=== PATIENT | female | born 1995 | race Caucasian/White ===

== ENCOUNTER 2025-04-01 20:20 | Emergency (ER) | payer OTHER, SELFPAY ==
[2025-04-01 20:23] VITALS: BP 149/106
[2025-04-01] MEDS: TYLENOL 650 MG PO (22:57)
[2025-04-01 23:00] VITALS: BP 108/70
--- NOTE | 2025-04-01 23:03 | ED.GENMED ---
History of Present Illness
General
Chief Complaint: Crisis Evaluation
Source: patient
Exam Limitations: none
Time Seen by Provider: 04/01/25 21:06
Nursing documentation reviewed up to this point in time: agreed with
History of Present Illness
History of Present Illness:
Patient with history of bipolar disorder, presents ED for evaluation secondary to suicidal ideation. Patient states that she recently started drinking alcohol again, which may be contributing to her presentation. She was at work this afternoon and
when she saw the cord, she had thoughts of wanting to wrap a cord around her neck. Patient has had previous suicidal attempt. Denies recent illness. Denies recent change in medications or diet. Patient is complaining of chronic headache.
Past History
Past History
ED Past Medical History: Other (Ovarian cysts)
ED Past Surgical History: Other (Rhinoplasty)
Social History
Tobacco: Former smoker
Alcohol: Occasional
Drug: None
Personal: Single
Living: with family
Review of Systems
Review of Systems
Allergies reviewed?: Yes
All Other Systems: ROS reviewed and negative except as documented in HPI and ROS
Constitutional: Reports no symptoms
Respiratory: Reports no symptoms
Cardiac: Reports no symptoms
ABD/GI: Reports no symptoms
Musculoskeletal: Reports no symptoms
Skin: Reports no symptoms
Neurological: Reports headache
Psychiatric: Reports suicidal
Phy Exam
Physical Exam
Physical Exam:
Physical Exam
General: no apparent distress, not acutely ill. afebrile
Head: nc/at. eomi
Neck: supple. normal range of motion.
Heart: s1/s2 regular rate and rhythm
Lungs: no acute respiratory distress. clear bilaterally
Abdomen: normal bowel sounds. not tender.
Neuro: alert and oriented x 3. no focal neurological deficits
Skin: no rash
Psychiatric: well kept. interactive and cooperative
Extremities: no edema. no calf tenderness.
Course
Orders/Labs/Results
Orders:
Orders
04/01/25 20:28
1:1 Observation - Suicide/ Violent Behavior As Directed
04/01/25 22:26
Crisis Consult Urgent
Reason for Consult: suicidal ideation
04/01/25 22:35
Acetaminophen [Tylenol] 650 mg PO NOW STA
04/01/25 22:58
Urine Drug Abuse Screen Urgent
Date Specimen was Collected: 04/01/25
Time Specimen was Collected: 22:58
Test Result ONCE
04/01/25 23:06
Lorazepam [Ativan] 1 mg PO NOW STA
04/01/25 23:07
Alcohol Urgent
HCG, Serum Qualitative Screen Urgent
Comment: Notify provider if positive test present
Vital Signs
Initial and Last Documented VS:
Initial Vital Signs
Temp Pulse Resp BP Pulse Ox
98.1 F 103 18 149/106 100
04/01/25 20:23 04/01/25 20:23 04/01/25 20:23 04/01/25 20:23 04/01/25 20:23
Last Documented Vital Signs
Temp Pulse Resp BP Pulse Ox
98.1 F 92 14 108/70 100
04/01/25 20:23 04/01/25 23:00 04/01/25 23:00 04/01/25 23:00 04/01/25 23:06
MDM/Problems Addressed
MDM/Problems Addressed:
Patient was evaluated by [facility] compensator worker. Decision made to transition patient to inpatient psychiatric facility for further evaluation treatment, on voluntary basis.
*Pulse Oximetry
SaO2: 100
Oxygen Mode of Delivery: Room air
Patient hypoxic: no
*Critical Care Note
Total Time (30-74mins, 75-104mins- exclusive of procedures): Not Applicable
ED Attending Note
-
Portions of this chart may have been created with voice recognition software.� Occasional wrong word or��sound alike� substitutions may have occurred due to the inherent limitations of voice recognition software.
Discharge Plan
Departure
Patient Disposition: Psych Facility
Date of Disposition: 04/01/25
Time of Disposition: 23:07
Patient Status:: 201
Discharge Problem:
Suicidal ideation
Prescriptions:
No Action
levothyroxine 25 mcg Tablet
25 mcg PO DAILY
Referrals:
Xavier Canada MD [Family Provider, Internal Medicine]
Interventions
Interventions:
*Risk Screen - Suicide Last Done: 04/01/25 20:23
*General Assessment Last Done: 04/01/25 20:23
*Neglect/Abuse Screening Last Done: 04/01/25 23:11
*ED- Fall Risk Assessment Last Done: 04/01/25 23:11
*ED COVID-19 Vaccine History Last Done: 04/01/25 23:11
*ED Influenza Vaccine History Last Done: 04/01/25 23:11
*Nursing Disposition Last Done: 04/02/25 03:10
ED-Psychological Assessment Last Done: 04/01/25 23:11
Discharge Date and Time
Discharge Date/Time: 04/02/25 03:20
Print Language: HUNGARIAN
[2025-04-01] MEDS: ATIVAN 1 MG PO (23:09)
[2025-04-01 23:11] VITALS: BMI 19.6
[2025-04-01 23:55] LABS: HCG, Serum Qualitative Screen Negative
== END 2025-04-02 03:20 ==
LOC: EMR 20:20
PROVIDERS: EMERGENCY PHYSICIAN Emergency Medicine; FAMILY PHYSICIAN Internal Medicine
DX: R45.851 Suicidal ideations (principal); F31.9 Bipolar disorder, unspecified; Z91.51 Personal history of suicidal behavior; Z87.891 Personal history of nicotine dependence
CPT/HCPCS: 99285; 80306; 82077; 84703

== ENCOUNTER 2025-05-15 15:28 | Emergency (ER) | payer OTHER, SELFPAY ==
[2025-05-15 15:30] VITALS: BP 167/96
--- NOTE | 2025-05-15 16:34 | ED.GENMED ---
History of Present Illness
General
Chief Complaint: Urinary Symptoms
Time Seen by Provider: 05/15/25 16:18
History of Present Illness
History of Present Illness:
Samantha is a 29F with PMH of [place] who presents complaining of dysuria and hematuria that began today. She was recently treated with a 5 day course of antibiotics by PCP after home urine dip was positive for UTI. Symptoms intially resolved but
then she began to develop dysuria several days ago and today had blood tinged urine. Last menstural cycle ended 1 week ago.
Past History
Past History
ED Past Medical History: Other (Ovarian cysts)
ED Past Surgical History: Other (Rhinoplasty)
Social History
Tobacco: Former smoker
Alcohol: Occasional
Drug: None
Personal: Single
Living: with family
Phy Exam
General Physical Exam
General Presentation: well appearing and no apparent distress
General Skin: warm and dry
General Habitus: normal
General Mental: alert
General Hydration: appears well hydrated
ENT Exam
ENT Exam: EOMI, pharynx normal, neck supple and normocephalic
Eye Exam
Eye Exam: PERRL, cornea clear and conjunctiva normal
Cardiovascular Exam
Cardiovascular Exam: regular rate/rhythm, no edema, no murmur and normal peripheral pulses
Pulmonary Exam
Pulmonary Exam: lungs clear, no respiratory distress, no rales, no crackles, no rhonchi, no stridor, no wheezing and no cough
Gastrointestinal Exam
Gastrointestinal Exam: normal bowel sounds, non tender, soft, no organomegaly, no pulsatile mass and non distended
Neurological Exam
Neurological Exam: alert, oriented x3, no motor deficits and speech normal
Musculoskeletal Exam
Musculoskeletal Exam: full ROM, no edema and other (Right sided mid back pain, no CVA tenderness)
Skin Exam
Skin Exam: normal color, warm/dry, no rash and no petechia
Psychiatric Exam
Psychiatric Exam: normal mood/affect
Course
Orders/Labs/Results
Orders:
Orders
05/15/25 15:50
Test Result ONCE
05/15/25 16:48
Basic Metabolic Panel Urgent
Complete Blood Count/With Diff Urgent
, Urine Qualitative Screen [HCG, Urine Qualitative Screen] Urgent
Date Specimen was Collected: 05/15/25
Time Specimen was Collected: 16:14
Urinalysis Reflex To Culture Urgent
Date Specimen was Collected: 05/15/25
Time Specimen was Collected: 16:14
Chlamydia/GC by PCR Urgent
RHONDA Source: U
Specimen Description:
Source:: URINE
Date Specimen was Collected: 05/15/25
Time Specimen was Collected: 16:14
Comment: Add on per Kady Kendall PA-C
05/15/25 16:56
Acetaminophen [Tylenol] 1,000 mg PO NOW STA
05/15/25 18:23
Abdomen/Pelvis wo Contrast CT [CT Abd/pelvis Wo Iv Cont] Urgent
Comment:
Reason For Exam: right flank pain
05/15/25 19:05
Add On - Microbiology Urgent
Tests Added?: GC/Chlymydia urine
Abnormal Lab Results
05/15/25
16:48
RBC 4.13 L 10^6/uL
(4.20-5.40)
Hgb 11.6 L g/dL
(12.0-16.0)
Hct 36.5 L %
(37.0-47.0)
MCHC 31.8 L g/dL
(33.0-37.0)
RDW 17.8 H %
(11.5-14.5)
Plt Count 459 H 10^3/uL
(130-400)
Chloride 109 H mmol/L
(98-107)
Glucose 116 H mg/dl
(70-99)
05/15/25 16:48
05/15/25 16:48
Vital Signs
Initial and Last Documented VS:
Initial Vital Signs
Temp Pulse Resp BP Pulse Ox
36.9 C 112 18 167/96 99
05/15/25 15:30 05/15/25 15:30 05/15/25 15:30 05/15/25 15:30 05/15/25 15:30
Last Documented Vital Signs
Temp Pulse Resp BP Pulse Ox
36.9 C 100 16 132/90 95
05/15/25 15:30 05/15/25 19:40 05/15/25 19:40 05/15/25 19:40 05/15/25 19:40
MDM/Problems Addressed
Differential Diagnosis Includes:
UA obtained and is negative for any urinary tract infection. CBC and BMP reviewed with no abnormalities noted. Given this CT scan was added to rule out nephrolithiasis as patient is describing cramping mid back pain. CT abdomen pelvis without
contrast is negative for any kidney stones however shows possible ruptured ovarian cyst. Reevaluation this was discussed with patient who reports that she has a history of ruptured ovarian cyst and the pain is similar in nature to prior episodes.
Pain is improved after Tylenol. Patient requests that chlamydia and gonorrhea screening be completed and this was added onto her urine. She feels well and would like to be discharged home. Return precautions discussed and patient will follow-up
with her as an outpatient.
*Pulse Oximetry
SaO2: 99
Oxygen Mode of Delivery: Room air
Patient hypoxic: no
*Critical Care Note
Total Time (30-74mins, 75-104mins- exclusive of procedures): Not Applicable
ED Attending Note
-
Portions of this chart may have been created with voice recognition software.� Occasional wrong word or��sound alike� substitutions may have occurred due to the inherent limitations of voice recognition software.
Discharge Plan
Departure
Patient Disposition: Home (Routine Discharge)
Date of Disposition: 05/15/25
Time of Disposition: 19:05
Patient with high blood pressure during this ER visit?: Yes
Discharge Problem:
Ovarian cyst
Instructions: Ovarian cyst - ED (DC)
Prescriptions:
No Action
levothyroxine 25 mcg Tablet
25 mcg PO DAILY
Referrals:
Xavier Canada MD [Family Provider, Internal Medicine]
Activity Restrictions/Additional Instructions:
Follow-up with your building service worker regarding recurrent ovarian cysts. You may take Tylenol and ibuprofen for any pain. Return to the ER for fevers over 100.4 that do not respond to Tylenol or ibuprofen for worsening of her abdominal pain. STD panel
has been added to your urine and if results are positive you will be called
Interventions
Interventions:
*Risk Screen - Suicide Last Done: 05/15/25 15:30
*General Assessment Last Done: 05/15/25 15:30
*Neglect/Abuse Screening Last Done: 05/15/25 15:30
*ED COVID-19 Vaccine History Last Done: 05/15/25 20:00
*ED Influenza Vaccine History Last Done: 05/15/25 20:00
[facility] Fall Risk Assessment Tool Last Done: 05/15/25 20:00
*Nursing Disposition Last Done: 05/15/25 20:00
ED-Female Genitourinary Assessment Last Done: 05/15/25 17:04
Discharge Date and Time
Discharge Date/Time: 05/15/25 20:02
Print Language: BENGALI
[2025-05-15 17:06] LABS: Hematocrit 36.5 % (37.0-47.0); Hemoglobin 11.6 g/dL (12.0-16.0); Mean Corp Hgb Conc. 31.8 g/dL (33.0-37.0); Mean Corpuscular Volume 88.4 fL (81.0-99.0); Nucleated Red Blood Cells % 0 %; Platelet Count 459 10^3/uL (130-400); Red Cell Dist. Width 17.8 % (11.5-14.5)
[2025-05-15] MEDS: TYLENOL 1000 MG PO (17:12)
[2025-05-15 17:17] LABS: Blood Urea Nitrogen 13 mg/dl (7-17); Calcium 9.5 mg/dl (8.4-10.2); Carbon Dioxide 23 mmol/L (22-30); Chloride 109 mmol/L (98-107); Glucose 116 mg/dl (70-99); Potassium 4.0 mmol/L (3.5-5.1); Sodium 135 mmol/L (135-145); eGFR > 60.00
[2025-05-15 18:16] LABS: Urine Character Clear (Clear)
[2025-05-15 18:18] LABS: HCG, Urine Qualitative Screen Negative
[2025-05-15 19:40] VITALS: BP 132/90
== END 2025-05-15 20:02 | disposition home or self-care (01) ==
LOC: EMR 15:28
PROVIDERS: Emergency Medicine; Surgery Trauma Surgery; EMERGENCY PHYSICIAN Emergency Medicine; FAMILY PHYSICIAN Internal Medicine
DX: N83.209 Unspecified ovarian cyst, unspecified side (principal); R31.0 Gross hematuria; E06.3 Autoimmune thyroiditis; Z87.891 Personal history of nicotine dependence; Z87.440 Personal history of urinary (tract) infections
CPT/HCPCS: 99284; 74176; 80048; 81003; 81025; 85025; 87491; 87591

== ENCOUNTER 2025-05-16 20:54 | Emergency (ER) | payer OTHER, SELFPAY ==
[2025-05-16 21:04] VITALS: BP 164/119
--- NOTE | 2025-05-16 21:42 | ED.GENMED ---
History of Present Illness
General
Chief Complaint: Overdose Intentional
Source: patient
Exam Limitations: none
Time Seen by Provider: 05/16/25 21:30
Nursing documentation reviewed up to this point in time: agreed with
History of Present Illness
History of Present Illness:
The patient is a 29-year-old female with a past medical history of bipolar disorder, anxiety, depression and multiple overdoses, who reports that around 5:30 PM this evening she took 25 tablets of an [id number] cold and cough medication. Each
tablet contained 4 mg of Chlorphenirmine maleate and 30 mg of dextromethorphan. Patient reports she took it not to kill herself or hurt herself, but to ' disassociate' and get high. Patient reports that she just started a new job and has been
slightly stressed. She feels safe at home and lives with roommates. Patient denies homicidal and suicidal thoughts. Patient feels palpitations. She denies nausea and vomiting. Patient reports she feels drowsy
Past History
Past History
ED Past Medical History: Psychiatric (Bipolar disorder) and Other (Ovarian cysts)
ED Past Surgical History: Other (Rhinoplasty)
Social History
Tobacco: Former smoker
Alcohol: Former
Drug: None
Personal: Single
Living: with roommate
Employment: Employed
Family History
Family History: Other
Review of Systems
Review of Systems
Allergies reviewed?: Yes
All Other Systems: ROS reviewed and negative except as documented in HPI and ROS
Constitutional: Reports fatigue
EENT: Reports no symptoms
Respiratory: Reports no symptoms
Cardiac: Reports palpitations
ABD/GI: Reports no symptoms
: Reports no symptoms
Musculoskeletal: Reports no symptoms
Skin: Reports no symptoms
Neurological: Reports dizzy
Endocrine: Reports no symptoms
Hematologic/Lymphatic: Reports no symptoms
Psychiatric: Reports anxiety; Denies suicidal
Phy Exam
Physical Exam
Physical Exam:
Physical Exam
General: Patient appears anxious
Neck: supple. no meningeal signs
Heart: Tachycardic
Lungs: no acute respiratory distress. clear bilaterally
Abdomen: normal bowel sounds. not tender. no CVAT
Neuro: alert and oriented. no focal neurological deficits
Skin: no rash
Psychiatric: well kept. interactive and cooperative
Extremities: no edema. no calf tenderness. negative homans. good distal pulses
Course
Orders/Labs/Results
Orders:
Orders
05/16/25 21:37
Test Result ONCE
05/16/25 21:38
Electrocardiogram (*1) Urgent
Reason for Study: Palpitations
EKG- Treatment ONCE
0.9% Sodium Chloride 1000 ml [Nss] 1,000 ml IV BOLUS
05/16/25 21:39
Crisis Consult Urgent
Reason for Consult: overdose
05/16/25 22:19
Alcohol Urgent
Complete Blood Count/With Diff Urgent
Comprehensive Metabolic Panel Urgent
HCG, Serum Qualitative Screen Urgent
Salicylate Urgent
Tylenol [Acetaminophen] Urgent
05/17/25 01:34
Acetaminophen [Tylenol] 1,000 mg PO NOW STA
05/17/25 01:35
Consult Notification Routine
Specialty to Notify: Psychiatry
PSYCHIATRY CONSULT Urgent
Consulting Provider: Dania Mckeon
Was physician already notified: No
Reason for consult: intentional overdose
Abnormal Lab Results
05/16/25
22:19
RBC 3.94 L 10^6/uL
(4.20-5.40)
Hgb 11.0 L g/dL
(12.0-16.0)
Hct 34.7 L %
(37.0-47.0)
MCHC 31.7 L g/dL
(33.0-37.0)
RDW 17.2 H %
(11.5-14.5)
Plt Count 413 H 10^3/uL
(130-400)
Absolute Neuts (auto) 6.9 H 10^3/uL
(1.4-6.5)
Absolute Monos (auto) 0.8 H 10^3/uL
(0.1-0.6)
Acetaminophen < 10 L ug/ml
(10-30)
05/16/25 22:19
05/16/25 22:19
Vital Signs
Initial and Last Documented VS:
Initial Vital Signs
Temp Pulse Resp BP Pulse Ox
98.8 F 119 20 164/119 95
05/16/25 21:04 05/16/25 21:04 05/16/25 21:04 05/16/25 21:04 05/16/25 21:04
Last Documented Vital Signs
Temp Pulse Resp BP Pulse Ox
98.8 F 115 22 140/94 96
05/16/25 21:04 05/17/25 00:15 05/17/25 00:15 05/17/25 00:00 05/17/25 00:15
MDM/Problems Addressed
Differential Diagnosis Includes:
Intentional acute dextromethorphan overdose, suicidal attempt, acute anxiety
MDM/Problems Addressed:
Patient presents after acute overdose that was intentional
Chronic conditions affecting care: Psychiatric illness
Acute Exacerbation and/or Progression of Chronic Illness:
Patient likely has progression and acute exacerbation of anxiety and depression
*Pulse Oximetry
SaO2: 95
Oxygen Mode of Delivery: Room air
Patient hypoxic: no
*EKG
Interpreted by ED Provider?: Yes
Interpretation: abnormal
Comparison EKG: changes noted
Rate: tachycardiac
Rhythm: sinus
Sequim: normal axis
Interval: normal interval
QRS Pattern: normal QRS
Ischemia: no ischemia
*Technology Education Teacher Interpretation
Rate: tachycardiac
Interpretation: abnormal
Rhythm: sinus
*Critical Care Note
Total Time (30-74mins, 75-104mins- exclusive of procedures): Not Applicable
Data Reviewed
Review of Other/Old Records Reveals: Progress Notes (Crisis note reviewed from 04/03/2025 when patient arrived for suicidal thoughts and wanted inpatient psychiatric management)
Source: patient
Patient Management
Social determinants of health affecting care: Living situation and Strong social support
Discussion with other providers: Other ([facility], Dr. Tapia from [facility] who recommends observation until 2 AM)
Update Note
Update Note:
2:05 AM patient is medically cleared for psychiatric eval and dispo. Patient expresses that she really would like to go home. She states that she did not take the pills to kill herself, rather, to ' feel high'. Patient expresses remorse to me
about taking the pills. She reports she has training for a new job both today and tomorrow and is very concerned about missing it. Telepsych did evaluate the patient and is concerned about patient's safety given that she took 25 pills. I
explained to the patient that I am very concerned about her insight and judgment and still question her safety.
Patient is agreeable to staying in the ED to talk to psychiatry later this morning. I put in a psychiatric consult
ED Attending Note
-
Portions of this chart may have been created with voice recognition software.� Occasional wrong word or��sound alike� substitutions may have occurred due to the inherent limitations of voice recognition software.
Discharge Plan
Departure
Patient Disposition: Other
Date of Disposition: 05/17/25
Time of Disposition: 00:26
Patient Status:: 302
Patient with high blood pressure during this ER visit?: Yes
Condition: Fair
Covid-19: Not Applicable
Discharge Problem:
Intentional overdose
Prescriptions:
No Action
levothyroxine 25 mcg Tablet
25 mcg PO DAILY
lamotrigine [Lamictal] 25 mg Tablet
25 mg PO DAILY
buspirone [BuSpar] 10 mg Tablet
10 mg PO TID
Referrals:
Xavier Canada MD [Family Provider, Internal Medicine]
Interventions
Interventions:
*General Assessment Last Done: 05/16/25 21:04
*Neglect/Abuse Screening Last Done: 05/16/25 21:04
*ED COVID-19 Vaccine History Last Done: 05/16/25 21:04
*ED Influenza Vaccine History Last Done: 05/16/25 21:04
[facility] Fall Risk Assessment Tool Last Done: 05/16/25 21:53
ED- Cardiac Assessment Last Done: 05/16/25 21:50
ED- Neurological Assessment Last Done: 05/16/25 21:50
ED-Psychological Assessment Last Done: 05/16/25 21:50
ED- Pulmonary Assessment Last Done: 05/16/25 21:50
Discharge Date and Time
Print Language: HONG KONGER
[2025-05-16 21:49] VITALS: BMI 22.3
[2025-05-16 22:27] LABS: Hematocrit 34.7 % (37.0-47.0); Hemoglobin 11.0 g/dL (12.0-16.0); Mean Corp Hgb Conc. 31.7 g/dL (33.0-37.0); Mean Corpuscular Volume 88.1 fL (81.0-99.0); Nucleated Red Blood Cells % 0 %; Platelet Count 413 10^3/uL (130-400); Red Cell Dist. Width 17.2 % (11.5-14.5)
[2025-05-16] MEDS: NSS 1000 IV (22:32)
[2025-05-16 22:34] VITALS: BP 147/96
[2025-05-16 22:50] LABS: HCG, Serum Qualitative Screen Negative
[2025-05-16 22:51] LABS: ALT (SGPT) 17 U/L (0-35); AST (SGOT) 25 U/L (14-36); Acetaminophen < 10 ug/ml (10-30); Albumin 4.6 g/dl (3.5-5.0); Alkaline Phosphatase 48 U/L (38-126); Blood Urea Nitrogen 13 mg/dl (7-17); Calcium 9.7 mg/dl (8.4-10.2); Carbon Dioxide 30 mmol/L (22-30); Chloride 107 mmol/L (98-107); Estimated Creatinine Clearance 96 ml/min; Glucose 80 mg/dl (70-99); Potassium 4.4 mmol/L (3.5-5.1); Salicylate 3.7 mg/dl (2.0-20.0); Sodium 135 mmol/L (135-145); Total Protein 7.5 g/dl (6.3-8.2); eGFR > 60.00
[2025-05-17] VITALS: BP 140/94
--- NOTE | 2025-05-17 01:04 | EDRN ---
Pt outside room in clothing with belongings, self removed IV. pt asking to leave right now and is unwilling to speak to anybody. Crisis at bedside to explain possibility of 302 if she is unwilling to stay due to psych doctors request. Pt disagrees
with psych diagnosis 'I actually want to get a managing director involved'. Dr. Wu at bedside explaining need to stay. Security called to bedside.
[2025-05-17] MEDS: TYLENOL 1000 MG PO (01:42)
--- NOTE | 2025-05-17 02:00 | EDRN ---
Pt moved to C2 with security. Crisis to bedside to speak with patient again about staying. pt states she is willing to stay overnight voluntarily to [facility]. Pt changed into paper scrubs, provided warm blankets, water and Tylenol for
headache.
--- NOTE | 2025-05-17 04:20 | EDRN ---
Pt resting on bed, 1-1 observation continues. pt expresses no needs, offered warm blankets but states she is okay. Pt cooperative with staff at this time.
[2025-05-17 06:43] VITALS: BP 112/78
--- NOTE | 2025-05-17 11:19 | ED.GENMED ---
History of Present Illness
General
Chief Complaint: Overdose Intentional
Time Seen by Provider: 05/16/25 21:30
Past History
Past History
ED Past Medical History: Psychiatric (Bipolar disorder) and Other (Ovarian cysts)
ED Past Surgical History: Other (Rhinoplasty)
Social History
Tobacco: Former smoker
Alcohol: Former
Drug: None
Personal: Single
Living: with roommate
Employment: Employed
Family History
Family History: Other
Course
Orders/Labs/Results
Orders:
Orders
05/16/25 21:37
Test Result ONCE
05/16/25 21:38
Electrocardiogram (*1) Urgent
Reason for Study: Palpitations
EKG- Treatment ONCE
0.9% Sodium Chloride 1000 ml [Nss] 1,000 ml IV BOLUS
05/16/25 21:39
Crisis Consult Urgent
Reason for Consult: overdose
05/16/25 22:19
Alcohol Urgent
Complete Blood Count/With Diff Urgent
Comprehensive Metabolic Panel Urgent
HCG, Serum Qualitative Screen Urgent
Salicylate Urgent
Tylenol [Acetaminophen] Urgent
05/17/25 01:34
Acetaminophen [Tylenol] 1,000 mg PO NOW STA
05/17/25 01:35
Consult Notification Routine
Specialty to Notify: Psychiatry
PSYCHIATRY CONSULT Urgent
Consulting Provider: Dania Mckeon
Was physician already notified: No
Reason for consult: intentional overdose
Abnormal Lab Results
05/16/25
22:19
RBC 3.94 L 10^6/uL
(4.20-5.40)
Hgb 11.0 L g/dL
(12.0-16.0)
Hct 34.7 L %
(37.0-47.0)
MCHC 31.7 L g/dL
(33.0-37.0)
RDW 17.2 H %
(11.5-14.5)
Plt Count 413 H 10^3/uL
(130-400)
Absolute Neuts (auto) 6.9 H 10^3/uL
(1.4-6.5)
Absolute Monos (auto) 0.8 H 10^3/uL
(0.1-0.6)
Acetaminophen < 10 L ug/ml
(10-30)
05/16/25 22:19
05/16/25 22:19
Vital Signs
Initial and Last Documented VS:
Initial Vital Signs
Temp Pulse Resp BP Pulse Ox
98.8 F 119 20 164/119 95
05/16/25 21:04 05/16/25 21:04 05/16/25 21:04 05/16/25 21:04 05/16/25 21:04
Last Documented Vital Signs
Temp Pulse Resp BP Pulse Ox
98.1 F 98 14 112/78 99
05/17/25 06:43 05/17/25 06:43 05/17/25 06:43 05/17/25 06:43 05/17/25 06:43
*Pulse Oximetry
SaO2: 99
Oxygen Mode of Delivery: Room air
Update Note
Update Note:
Attending Sign Out (Hyun Arias DO)
11:15 -29-year-old female who presented to the emergency department after intentional overdose. Patient however denies suicidal ideation. Patient was placed under 302 given the overdose
ED Attending Note
-
Portions of this chart may have been created with voice recognition software.� Occasional wrong word or��sound alike� substitutions may have occurred due to the inherent limitations of voice recognition software.
Discharge Plan
Departure
Patient Disposition: Other
Date of Disposition: 05/17/25
Time of Disposition: 00:26
Patient Status:: 302
Patient with high blood pressure during this ER visit?: Yes
Condition: Fair
Covid-19: Not Applicable
Discharge Problem:
Intentional overdose
Prescriptions:
No Action
levothyroxine 25 mcg Tablet
25 mcg PO DAILY
lamotrigine [Lamictal] 25 mg Tablet
25 mg PO DAILY
buspirone [BuSpar] 10 mg Tablet
10 mg PO TID
Referrals:
Xavier Canada MD [Family Provider, Internal Medicine]
Interventions
Interventions:
*Risk Screen - Suicide Last Done: 05/16/25 22:45
*General Assessment Last Done: 05/16/25 21:04
*Neglect/Abuse Screening Last Done: 05/16/25 21:04
*ED COVID-19 Vaccine History Last Done: 05/16/25 21:04
*ED Influenza Vaccine History Last Done: 05/16/25 21:[address]
[facility] Fall Risk Assessment Tool Last Done: 05/16/25 21:53
ED- Cardiac Assessment Last Done: 05/16/25 21:50
ED- Neurological Assessment Last Done: 05/16/25 21:50
ED-Psychological Assessment Last Done: 05/16/25 21:50
ED- Pulmonary Assessment Last Done: 05/16/25 21:50
Discharge Date and Time
Print Language: BANGLADESHI
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
--- NOTE | 2025-05-17 11:20 | ED.CRISIS ---
ED Crisis Note
ED Crisis Note
Subjective:
29-year-old female presenting to the emergency department after intentional overdose
Objective:
Patient seen and evaluated by physician overnight after patient had intentionally taken approximately 25 tablets of [id number] cold and cough medication. Each tablet contained 4 mg of Chlorphenirmine maleate and 30 mg of dextromethorphan.
Patient medically cleared in the emergency department. Patient was placed under 302 given self-harm behavior, however adamantly denying suicidal ideation. Reports that she wanted to 'get high '. Pending psych assessment
Assessment/Plan:
Patient remains at hemodynamically stable. She was seen and evaluated by psychiatry. They do not presently feel like she is a risk to her self or threat to herself. Feel patient is stable for discharge with outpatient resources as this will
provide.
== END 2025-05-17 11:45 | disposition home or self-care (01) ==
LOC: EMR 20:54
PROVIDERS: CONSULT PHYSICIAN Psychiatry & Neurology Psychiatry; EMERGENCY PHYSICIAN Emergency Medicine; FAMILY PHYSICIAN Internal Medicine
DX: T50.902A Poisoning by unspecified drugs, medicaments and biological substances, intentional self-harm, initial encounter (principal); Y92.9 Unspecified place or not applicable; F31.9 Bipolar disorder, unspecified; F41.0 Panic disorder [episodic paroxysmal anxiety]; E06.3 Autoimmune thyroiditis; Z87.891 Personal history of nicotine dependence; Z88.0 Allergy status to penicillin
CPT/HCPCS: 99283; 96360; 80053; 80143; 80179; 82077; 84703; 85025; 93005